=== PATIENT | male | born 1960 | race Two or more races ===

== ENCOUNTER 2018-04-16 20:57 | Observation (INO) | payer OTHER ==
[~2018-04-16] VITALS: Ht 175.3 cm; Wt 106.1 kg
[2018-04-16] MEDS ORDERED: ASPIRIN 325 MG TAB EC PO STA (21:39)
[2018-04-16] MEDS ORDERED: ONDANSETRON HCL INJ 2MG/ML 2ML 2 MG/ML VIAL IV PRN (21:45)
--- NOTE | 2018-04-16 21:58 | Diagnostic Imaging Report ---
EXAMINATION: CXR 1 W - [facility] INDICATION: Possible heart attack. Chest pain. COMPARISON: None FINDINGS: AP view TUBES and LINES: None. LUNGS: Lungs are well inflated. Lungs are clear. There is no evidence of pneumonia or pulmonary edema. PLEURA: No pleural effusion or pneumothorax. HEART AND MEDIASTINUM: The cardiomediastinal silhouette is unremarkable. BONES AND SOFT TISSUES: No acute osseous lesion. Soft tissues are unremarkable. UPPER ABDOMEN: No free air under the diaphragm. IMPRESSION: No acute thoracic abnormality. Signed by: DR. Omer Powers MD on 04/16/2018 9:55 PM
--- NOTE | 2018-04-16 22:03 | Diagnostic Imaging Report ---
EXAMINATION: Head CT without contrast. HISTORY:Dizziness and weakness. COMPARISON:None. TECHNIQUE: Multidetector axial images were obtained from the foramen magnum to the vertex without contrast. The images were reconstructed using brain and bone algorithms. Thin section brain images were reformatted into coronal and sagittal planes. Dose modulation, iterative reconstruction, and/or weight based adjustment of the mA/kV was utilized to reduce the radiation dose to as low as reasonably achievable. Intravenous contrast: None IMAGE QUALITY: Acceptable. FINDINGS: Skull/scalp: No lytic or blastic. lesions. No surgical changes. Parenchyma: No abnormal density. No acute hemorrhage, mass or acute major vascular territorial infarct. Arteries: No density suggestive of thrombosis. Dural sinuses: No abnormal density suggestive of thrombosis. Ventricles: No hydrocephalus or displacement. Extra-axial spaces: No abnormal density. Brain volume: Normal for age. Craniocervical junction: No mass, Chiari malformation, or basilar invagination. Sella: No mass. Paranasal/mastoid sinuses: Imaged portions unremarkable. IMPRESSION: No intracranial abnormality. Signed by: Dr. Melanie Negrete M.D. on 04/16/2018 9:59 PM
--- OUTSIDE RECORDS SUMMARY | 2018-04-16 22:17 | XMS REPORT ---
Author Author [facility] Address Unknown Phone Unavailable Care Team Providers Care Track Repair Person Name Role Phone Theron BUSH Unavailable Unavailable Problems This patient has no known problems. Allergies, Adverse Reactions, Alerts This patient has no known allergies or adverse reactions. Medications This patient has no known medications. Results Test Description Test Time Test Comments Text Results Atomic Results Result Comments CT BRAIN WO-HOPD 2018-04-16 21:56:00 [place] [address] Patient Name: COY GARCIA MR #: [id number] : 1960 Age/Sex: 57/M Req #: [id number] Adm Physician: Ordered by: LYNDSEY BUSH MD Report #: [id number] Location: [facility] Room/Bed: Procedure: [id number] HOPD/CT BRAIN WO-HOPD Exam Date: Exam Time: REPORT STATUS: Signed EXAMINATION: Head CT without contrast. HISTORY:Dizziness and weakness. COMPARISON:None. TECHNIQUE: Multidetector axial images were obtained from the foramen magnum to the vertex without contrast. The images were reconstructed using brain and bone algorithms. Thin section brain images were reformatted into coronal and sagittal planes. Dose modulation, iterative reconstruction, and/or weight based adjustment of the mA/kV was utilized to reduce the radiation dose to as low as reasonably achievable. Intravenous contrast: None IMAGE QUALITY: Acceptable. FINDINGS: Skull/scalp: No lytic or blastic. lesions. No surgical changes. Parenchyma: No abnormal density. No acute hemorrhage, mass or acute major vascular territorial infarct. Arteries: No density suggestive of thrombosis. Dural sinuses: No abnormal density suggestive of thrombosis. Ventricles: No hydrocephalus or displacement. Extra- axial spaces: No abnormal density. Brain volume: Normal for age. Craniocervical junction: No mass, Chiari malformation, or basilar invagination. Sella: No mass. Paranasal/mastoid sinuses: Imaged portions unremarkable. IMPRESSION: No intracranial abnormality. Signed by: Dr. Melanie Negrete M.D. on 04/16/2018 9:59 PM Dictated By: MELANIE NEGRETE MD 59 Transcribed By: SEGUNDO on 04/16/182158 COPY TO: LYNDSEY BUSH MD CXR 1 [facility] 2018-04-16 21:54:00 [place] [address] Patient Name: COY GARCIA MR #: [id number] : 1960 Age/Sex: 57/M Req #: [id number] Adm Physician: Ordered by: LYNDSEY BUSH MD Report #: [id number] Location: [facility] Room/Bed: Procedure: [id number] HOPD/CXR 1 VEW - [facility] Exam Date: Exam Time: REPORT STATUS: Signed EXAMINATION: CXR 1 VEW - [facility] INDICATION: Possible heart at tack. Chest pain. COMPARISON: None FINDINGS: AP view TUBES and LINES: None. LUNGS: Lungs are well inflated. Lungs are clear. There is no evidence of pneumonia or pulmonary edema. PLEURA: No pleural effusion or pneumothorax. HEART AND MEDIASTINUM: The cardiomediastinal silhouette is unremarkable. BONES AND SOFT TISSUES: No acute osseous lesion. Soft tissues are unremarkable. UPPER ABDOMEN: No free air under the diaphragm. IMPRESSION: No acute thoracic abnormality. Signed by: DR. Omer Myles MD on 04/16/2018 9:55 PM Dictated By: OMER MYLES MD 54 Transcribed By: SEGUNDO on 04/16/182154 COPY TO: LYNDSEY BUSH MD
[2018-04-16] MEDS: FAMOTIDINE 20 MG/2 ML VIAL IV SCH (23:01)
[2018-04-17 00:18] VITALS: BP 147/67
[2018-04-17 00:25] VITALS: BP 147/67
[2018-04-17 04:03] VITALS: BP 129/60
--- NOTE | 2018-04-17 07:00 | NUR ---
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 No cp/sob. 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 affect labs/meds; rev'd A/P: TIA BPPV RBBB Former smoker HTN urgency obesity BMI 34.6 PLAN 1.PT 2.meclizine 3.f/u MRI, Echo and carotid U/s 4.If all studies negative, d/c with ASA and statin and meclizine later today Lovenox/pepcid prophylaxis. Terry Tao MD, PhD.
--- NOTE | 2018-04-17 07:00 | NUR ---
SPOKE TO DR. SON ISRAEL AT THIS TIME REGARDING CONSULT. NO ORDER RCV.
[2018-04-17] MEDS ORDERED: ECOTRIN81 MG PO (07:09)
[2018-04-17] MEDS ORDERED: MECLIZINE HCL12.5 MG PO (07:09)
[2018-04-17] MEDS ORDERED: PRAVASTATIN SOD20 MG PO (07:09)
[2018-04-17 07:27] LABS: BASOPHILS # (AUTO) 0.1 (0.0-0.1); BASOPHILS % 0.7 % (0.0-1.0); EOSINOPHILS # (AUTO) 0.1 (0.0-0.4); EOSINOPHILS % 1.6 % (0.0-6.0); HEMATOCRIT 36.9 % (38.2-49.6); HEMOGLOBIN 12.8 g/dL (14.0-18.0); LYMPHOCYTES # (AUTO) 2.5 (1.0-3.2); LYMPHOCYTES % 33.6 % (18.0-39.1); MEAN CORPUSCULAR HEMOGLOBIN 31.4 pg (28-32); MEAN CORPUSCULAR HGB CONC 34.7 g/dL (31-35); MEAN CORPUSCULAR VOLUME 90.4 fL (81-99); MONOCYTES # (AUTO) 0.7 (0.2-0.8); MONOCYTES % 9.8 % (4.4-11.3); NEUTROPHILS % 54.2 % (38.7-80.0); PLATELET COUNT 167 x10e3/uL (140-360); RED BLOOD COUNT 4.08 x10e6/uL (4.3-5.7); RED CELL DISTRIBUTION WIDTH 12.7 % (11.7-14.4)
[2018-04-17 08:00] VITALS: BP 125/68
--- NOTE | 2018-04-17 08:00 | NUR ---
NURSE USING CULTURALINK TO COMMUNICATE WITH PATIENT ([id number]). PATIENT SPEAKS [place]. NURSE EXPLAINING PLAN OF CARE. PATIENT VERBALIZED UNDERSTANDING. PATIENT IS CONCERNED ABOUT HIS SHIP LEAVING TODAY AND SAYS HE NEEDS HIS BELONGINGS THAT ARE ON THE SHIP. WE TOLD HIM WE WILL TRY TO CONTACT SOMEONE ABOUT HIS BELONGINGS. PATIENT REQUEST THAT WE DO ALL TESTING BEFORE 12PM SO HE CAN LEAVE AND BE ON TIME TO RETURN TO HIS SHIP. ASSESSMENT COMPLETE. PT QUESTIONS ANSWERED. WILL CALL ECHO, MRI TO TRY TO GET TEST DONE STAT.
[2018-04-17 08:06] LABS: BLOOD UREA NITROGEN 26 mg/dL (7-26); BUN/CREATININE RATIO 21 (6-25); CALCIUM 9.3 mg/dL (8.4-10.2); CARBON DIOXIDE 24 mmol/L (22-29); CHLORIDE 105 mmol/L (98-107); CHOL/HDL RATIO 3.1 (3.9-4.7); CHOLESTEROL 132 MD/DL (0-199); CREATININE, SERUM 1.21 mg/dL (0.72-1.25); EST GLOMERULAR FILTRATION RATE > 60 ML/MIN (60-); GLUCOSE 98 mg/dL (74-118); HDL CHOLESTEROL 42 MG/DL (40-60); LDL CHOLESTEROL 71 MG/DL (60-130); SODIUM 136 mmol/L (136-145); TRIGLYCERIDES 97 MG/DL (0-149)
[2018-04-17 08:15] VITALS: BP 125/68
[2018-04-17] MEDS: FAMOTIDINE 20 MG/2 ML VIAL IV SCH (08:30)
[2018-04-17] MEDS ORDERED: LISINOPRIL 10 MG TAB PO SCH (09:00)
--- NOTE | 2018-04-17 11:18 | NUR ---
Dr. Sarmiento in room using language line to translate to patient. Sales Representative Graphic Art # [id number] [email or web address]
--- NOTE | 2018-04-17 11:48 | NUR ---
MD CASIANO HAS CLEARED PT FOR DC MD FAULKNER HAS CLEARED PT IF MRI IS NEGATIVE
--- NOTE | 2018-04-17 11:49 | NUR ---
PT DOOR FOR MRI AT THIS TIME
[2018-04-17 12:00] VITALS: BP 154/72
--- NOTE | 2018-04-17 12:00 | NUR ---
SPOKE WITH MD FAULKNER REGARDING MRI NOT BEING DONE DUE TO PT BEING CLAUSTROPHOBIC. STATES PROCEDURE CAN BE CANCELLED. MD CLEARED DISCHARGE SPOKE WITH MD BROOKS REGARDING RESULTS OF ECHO, CAROTID, AND CANCELLATION OF MRI. OK DISCHARGE AT THIS TIME
[2018-04-17 12:32] LABS: CREATINE KINASE MB 4.9 ng/mL (0-5.0)
--- NOTE | 2018-04-17 13:09 | NUR ---
DISCHARGE INSTRUCTIONS AND PRESCRIPTIONS GIVEN . PT VERBALIZED UNDERSTANDING. QUESTIONS WERE ANSWERED . ANATOMY PROFESSOR LINE USED ID NUMBER IS [id number] IV DC PRESSURE DRESSING APPLIED AND TAPED. CONTACTED PT [facility] EMPL[employer]MENT DIRECTOR ABOUT DC ORDER AND PT READY UNIQUE ANN (AGENT) IS AT BEDSIDE NOW TAKING CARE OF TRANSPORTATION AND PRESCRIPTION FILLING. PT SHOULD BE PICKED UP AROUND 1400 AGENT STATES
--- NOTE | 2018-04-17 14:51 | NUR ---
PT OFF UNIT ASSISTED BY AGENT AT THIS TIME
--- NOTE | 2018-04-17 20:07 | Consultation ---
DATE OF CONSULTATION: 04/17/2018 Neurology Consult Note HISTORY OF PRESENT ILLNESS: Mr. Pulido is a 57-year-old man with no known past medical history, admitted to [facility] on April 16, 2018, with multiple symptoms, including dizziness. At approximately 1800 on April 16, 2018, the patient began to experience dizziness which he describes as an intermittent vertiginous sensation exacerbated by quick movements. In addition to this symptom, the patient reports a visual disturbance which he cannot further describe, nausea without vomiting, diarrhea, and generalized weakness. Mr. Pulido does not report a visual field cut, dysarthria, aphasia, hemiparesis, hemihypesthesia, gait impairment, or confusion associated with the above symptoms. The patient does not report hearing loss, pain or fullness behind either ear, or tinnitus. The above described symptoms persisted for approximately 35 minutes, then gradually resolved. Mr. Pulido presented to the emergency center at [facility] for further evaluation of the above symptoms. Upon arrival in the emergency center, the patient was afebrile with an elevated blood pressure with a systolic blood pressure in the 170s mmHg. Mr. Pulido's neurological examination in the emergency center was documented as being nonfocal. A CT of the brain without contrast was performed and did not show evidence of recent remote large territorial ischemia or hemorrhage. Mr. Pulido was admitted to [facility] under observation status on April 16, 2018, for further evaluation and treatment of his symptoms. The patient has not experienced similar symptoms previously. These symptoms he experienced for approximately 35 minutes on April 16, 2018, have resolved and have not recurred. REVIEW OF SYSTEMS: Nausea, diarrhea, visual disturbance which cannot be further described, generalized weakness, and dizziness which is further described as a vertiginous sensation. PAST MEDICAL HISTORY: None. PAST SURGICAL HISTORY: None. PAST HOSPITALIZATIONS: None. FAMILY MEDICAL HISTORY: The patient's paternal and maternal grandparents are . Their medical histories are unknown. The patient's father is reportedly alive and healthy. The patient's mother is . Her medical history and cause of are unknown. Mr. Pulido has a brother who is alive and healthy. He has 2 daughters, both of whom are alive and healthy. SOCIAL HISTORY: Mr. Pulido is from [facility]. 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 The patient does report a remote history of tobacco use, but quit smoking cigarettes years ago. The patient does not report current or prior alcohol or recreational drug use. HOME MEDICATIONS: None, however, the patient does report he previously took aspirin daily. ALLERGIES: NO KNOWN DRUG ALLERGIES. NO KNOWN FOOD ALLERGIES. NO KNOWN ALLERGIES TO LATEX. NO KNOWN ALLERGIES TO IODINE OR OTHER CONTRAST MATERIALS. PHYSICAL EXAMINATION: VITAL SIGNS: Height 69 inches, weight 234 pounds, BMI is 34.6 kg/m2, blood pressure 125/68 mmHg, pulse 58 beats per minute, respiratory rate 19 breaths per minute, oxygen saturation 97% on room air. GENERAL: The patient is awake and alert, does not appear distressed. Obese. HEENT: Normocephalic, atraumatic. Pupils are equal, round, and reactive to light. Moist mucous membranes. NECK: Supple. No appreciable thyromegaly. No appreciable carotid bruits. CARDIOVASCULAR: S1, S2, regular rate and rhythm. No murmurs, rubs, or gallops. RESPIRATORY: Clear to auscultation bilaterally. No wheezes, rhonchi or rales. EXTREMITIES: The skin is warm and dry. No clubbing, cyanosis, or edema. The posterior tibial and dorsalis pedis pulses are 1+ and symmetric. SKIN: No rashes or lesions. NEUROLOGIC: Memory/Attention: The patient is awake and alert, oriented to person, place, time, and situation. Cranial Nerves: Cranial nerve I - not tested. Cranial nerve II, III, IV and - pupils are equal and round, reactive briskly to light (from 4 mm to 2 mm). Extraocular movements intact. No nystagmus. Cranial nerve V - sensation to light touch and pinprick is intact in the bilateral V1 through V3 distributions. Strength in the temporalis and mastoid muscles is within normal limits. Cranial nerves - the face is symmetric as are all facial movements. Strength is within normal limits. Cranial nerve VIII - hearing is intact to finger rub bilaterally. Cranial nerve IX, X - the soft palate elevates equally and symmetrically. Cranial nerve XI - normal strength to the bilateral sternocleidomastoid and trapezius muscles. Cranial nerves XII - the tongue protrudes and moves symmetrically from side to side. Strength: Bulk is normal. Strength is 5/5 in the bilateral deltoids, biceps, triceps, wrist flexors and extensors, finger flexors and extensors, intrinsic hand muscles, hip flexors, knee flexors and extensors, ankle dorsiflexion and plantar flexion, and intrinsic foot muscles. Tone is normal. DTRs: Deep tendon reflexes are 1+ and symmetric at the triceps, biceps, brachioradialis, patellas, and Achilles. Plantar responses are flexor bilaterally. Sensation: Sensation is intact to light touch and pinprick in both arms and both legs. Cerebellar: Jpqudz-jgem-oicitp and heel- ronquillo movements are intact without dysmetria or other impairment. Gait: Deferred. Speech: Spontaneous speech is normal without appreciable dysarthria or aphasia. Repetition is intact. Involuntary movements: None. Pronator drift: None. LABORATORY DATA: The patient's basic metabolic panel is unremarkable. Creatine kinase 193, CK-MB and troponin I are pending. Hemoglobin A1c is 5.3. Total cholesterol 132, triglycerides 97, LDL cholesterol 71, HDL cholesterol 42. CBC with differential and platelets was unremarkable. DIAGNOSTIC STUDIES: Electrocardiogram, 04/16/2018: Sinus rhythm at 62 beats per minute with first degree AV block. Right bundle- branch block. Left anterior fascicular block. Bifascicular block. Left ventricular hypertrophy. Widened QRS complex. Chest x-ray, 04/16/2018: No acute thoracic abnormality. CT of the brain without contrast, 04/16/2018: On my review, there is no evidence of recent or remote large territorial ischemia, hemorrhage, mass, or mass effects. Cerebral volumes are appropriate for age. There are no findings suggestive of chronic small vessel ischemic disease. ASSESSMENT AND PLAN: Mr. Pulido is a 57-year-old man without known past medical history admitted to [facility] on April 16, 2018, with dizziness, further described as a vertiginous sensation occurring intermittently and exacerbated by quick movements, visual disturbance, nausea, diarrhea, and generalized weakness. These symptoms persisted for approximately 35 minutes, then spontaneously resolved. At present, the patient's neurological examination is nonfocal. His laboratory data and other diagnostic studies have been reviewed and are documented above. Due to the patient's description of his symptoms, particularly the intermittent nature, absence of cardiovascular risk factors, and normal neurological examination, there is a low suspicion for a transient ischemic attack or stroke. It is more likely the patient's vertigo and other symptoms are the result of vertigo of a peripheral origin (i.e. benign positional vertigo, labyrinthitis, etc). In my opinion, no further testing is necessary. As the patient's symptoms have fully resolved, no further treatment is necessary. The patient may be discharged. Thank you for this consultation. Please call again with any questions or concerns. TIME SPENT: 50 minutes. Leyda Wong MD CP/SOY /[id number] MTDD
--- NOTE | 2018-04-18 00:47 | Consultation ---
DATE OF CONSULTATION: Cardiology Consultation REASON FOR CONSULTATION: Dizziness, elevated blood pressure. HISTORY OF PRESENT ILLNESS: This is a 57-year-old [place] man, who is currently here after being transported by emergency medical services from [place] in the [place]. The patient states that he developed multiple episodes of diarrhea and loose stools, felt unwell after eating dinner and then arose from standing position and felt lightheaded and dizzy. He denies any syncope. He denies any shortness of breath, palpitations, chest pain, or neurologic symptoms. He has no past cardiovascular history. No premature coronary artery disease or sudden cardiac in his family members. Upon arrival here, the patient was mildly hypertensive and we have been asked to evaluate the patient for his dizziness. REVIEW OF SYSTEMS: A 12-point review of system was conducted and is negative except as stated above in the HPI. PAST MEDICAL HISTORY: As stated above in the HPI. PAST SURGICAL HISTORY: None recent. PAST FAMILY HISTORY: No premature CAD or sudden cardiac . SOCIAL HISTORY: No illicit drug use, alcohol use, or tobacco use. ALLERGIES: NO KNOWN DRUG ALLERGIES. MEDICATIONS: See medication reconciliation form. PHYSICAL EXAMINATION: VITAL SIGNS: Temperature is 98.1, heart rate was 81, respirations are 20, blood pressure is 154/72, oxygen saturation 98% on room air. GENERAL: Well-appearing, well-developed, in no apparent distress. Alert and oriented x3. HEAD: Normocephalic, atraumatic. Eyes: Extraocular movements are intact. Conjunctivae are clear. NECK: No JVD. No bruits. CARDIOVASCULAR: Regular rate and rhythm. There is a slight murmur at the left sternal border. LUNGS: Clear to auscultation. ABDOMEN: Soft, nontender. EXTREMITIES: No edema. VASCULAR: 2+ pulses. NEUROLOGIC: No focal deficits noted. LABORATORY DATA: Reviewed. Troponin 0.286. Creatinine is 1.2. LDL is 71. Carotid artery Doppler showed no stenotic disease. Echocardiogram showed preserved ventricular systolic function and no significant valvular abnormalities. CT of the head showed no intracranial abnormality. IMPRESSION: 1. Dizziness. 2. Hypertension. 3. Bradycardia, resolved. 4. Diarrhea. RECOMMENDATIONS: The patient ruled out for acute myocardial infarction. He had a normal 12-lead electrocardiogram, preserved left ventricular systolic function on echocardiography, and no carotid artery stenosis. The patient may be discharged from a cardiovascular standpoint and discussed the need to follow up with a doctor once he returns to his home country. DO LILI Cui/SOY /[id number]
== END 2018-04-17 14:30 | disposition home or self-care (01) ==
LOC: FSED 20:57 → ERHOLD 21:39 → EDBD 21:39 → MED/SURG 04-17 00:07
PROVIDERS: ADMIT Internal Medicine; ATTEND Internal Medicine
DX: H81.10 Benign paroxysmal vertigo, unspecified ear (principal); I16.0 Hypertensive urgency; R53.1 Weakness; Z87.891 Personal history of nicotine dependence; R94.31 Abnormal electrocardiogram [ECG] [EKG]; R00.1 Bradycardia, unspecified; R19.7 Diarrhea, unspecified; E66.9 Obesity, unspecified; Z68.34 Body mass index [BMI] 34.0-34.9, adult
CPT/HCPCS: 36415; 70450; 71045; 80048; 80053; 80061; 80307; 82550; 82553; 83036; 84484; 85025; 93005; 93306; 93880; 99284; G0378; J2405